=== PATIENT | male | born 1980 | race Caucasian/White ===

== ENCOUNTER 2023-02-11 16:05 | Emergency (ER) | payer OTHER ==
--- NOTE | 2023-02-11 16:42 | XRAY Report ---
PROCEDURE: Foot 3 View LT INDICATIONS: Trauma TECHNIQUE: 3 views of the foot were acquired. COMPARISON: Correlation is made with the accompanying ankle plain films. FINDINGS: Bones: No fractures or dislocations. No suspicious bony lesions. Soft tissues: Mild ankle soft tissue swelling is seen. IMPRESSION: No acute plain film abnormality of the foot can be seen. Reviewed by: Live Valdovinos MD on 02/11/2023 3:41 PM [facility] Approved by: Live Valdovinos MD on 02/11/2023 3:41 PM [facility] Station ID: [id number]
--- NOTE | 2023-02-11 16:42 | XRAY Report ---
PROCEDURE: Ankle 3 View LT INDICATIONS: Trauma TECHNIQUE: 3 views of the ankle were acquired. COMPARISON: Correlation is made with the accompanying foot plain films. FINDINGS: Bones: No fractures or dislocations. Ankle mortise is normally aligned. No suspicious bony lesions . The talar dome demonstrates an unremarkable appearance. Soft tissues: Soft tissue swelling is seen laterally. IMPRESSION: Soft tissue swelling is seen. No findings of fracture are seen. However, if there is point tenderness (or other clinical concern fo r a fracture not seen on these plain films) then please consider a short-term follow-up plain film se ephraim or CT for further evaluation. Reviewed by: Live Valdovinos MD on 02/11/2023 3:40 PM [place] Approved by: Live Valdovinos MD on 02/11/2023 3:40 PM [place] Station ID: [id number]
[2023-02-11] MEDS ORDERED: BUFFERED LIDOCAINE 10 ML SYRINGE SUBQ STA (17:12)
--- NOTE | 2023-02-11 17:13 | ED Physician Documentation ---
PD HPI LOWER EXT INJURY - Stated complaint Stated Complaint: LFT ANKLE INJ - Chief complaint Chief Complaint: Ext Problem - History obtained from History obtained from: Patient (Playing softball yesterday and while sliding into the base he had an inversion injury of his left ankle with moderate pain. He also had somebody stepped on his right great toe with a subungual hematoma there. He is able to ambulate relatively normally.) PD PAST MEDICAL HISTORY - Allergies Allergies/Adverse Reactions: Allergies Allergy/AdvReac Type Severity Reaction Status Date / Time No Known Drug Allergies Allergy Verified 02/11/23 16:15 PD ED PE NORMAL - Vitals Vital signs reviewed: Yes - General General: Alert and oriented X 3, No acute distress - Extremities Extremities: Other (Mild tenderness over the lateral malleolus of the left ankle, no foot or proximal fibular tenderness. Normal Achilles function. There is a 100% subungual hematoma of the right great toenail.) - Neuro Neuro: Alert and oriented X 3, Normal speech Results - Vitals Vitals: Vital Signs - 24 hr 02/11/23 16:10 Temperature 36.5 C Heart Rate 78 Respiratory 16 Rate Blood Pressure 160/80 H O2 Saturation 100 Oxygen O2 Source Room air - Rads (name of study) XRay L foot/ankle Relevant Findings:: Final report received, EMP independent interpretation of test PD Medical Decision Making - ED course ED course: 42-year-old gentleman with a left ankle sprain and a right 100% great toe subungual hematoma. The right great toe was anesthetized using buffered lidocaine and trephinated with electrocautery. He was placed in a gel air splint. Departure - Departure Disposition: 01 Home, Self Care Clinical Impression: Left ankle sprain Qualifiers: Encounter type: initial encounter Involved ligament of ankle: anterior talofibular ligament Qualified Code(s): S93.492A - Sprain of other ligament of left ankle, initial encounter Subungual hematoma of foot Qualifiers: Encounter type: initial encounter Laterality: right Qualified Code(s): S90.221A - Contusion of right lesser toe(s) with damage to nail, initial encounter Condition: Good Record reviewed to determine appropriate education?: Yes Instructions: ED Sprain Ankle W X Ray, ED Hematoma Subungual Comments: Tylenol and/or ibuprofen as needed for pain, return for new or worsening s ymptoms. Follow-up with your doctor in a week if not better.
[2023-02-11] MEDS ORDERED: diltiaZEM INJ 5 MG/ML VIAL ONE (17:24)
[2023-02-11 18:13] VITALS: BP 155/78
== END 2023-02-11 18:00 | disposition home or self-care (01) ==
LOC: ED 16:05
DX: S93.492A Sprain of other ligament of left ankle, initial encounter (principal); S90.111A Contusion of right great toe without damage to nail, initial encounter; X50.1XXA Overexertion from prolonged static or awkward postures, initial encounter; W50.0XXA Accidental hit or strike by another person, initial encounter; Y93.64 Activity, baseball
CPT/HCPCS: 11740; 99283